=== PATIENT | female | born 1990 | race Caucasian/White ===

== ENCOUNTER 2017-01-15 01:49 | Emergency (ER) | payer BC ==
--- NOTE | ~2017-01-15 | CT4 ---
[facility] A Service of [facility] RADIOLOGY TEXT RESULTS PATIENT: KORIN DUFFY LOCATION: [facility] : [birth year] UNIT #: [id number] AGE: [address]: Lino Mujica MD SEX: F ORDER DR: [id number] [facility] [address] [place], [place] [address] [id number] MR#: [id number] Acc #: [id number] NAME: KORIN DUFFY. : 1990 SEX: F STUDY DATE/TIME: 01/15/2017 0300 UNIT: [facility] ROOM: STUDY DESCRIPTION: CT Abd and Pelv Wo Cont Attending Physician: Lino Mujica M.D. Ordering Physician: Lino Mujica M.D. Primary Care Physician: Francisco Griggs M.D. MEDICAL IMAGING REPORT This report is preliminary unless electronic signature is present EXAM CT abdomen and pelvis, 01/15 at 0300 INDICATION Left flank pain for 2 weeks. Pain worsened today and now rates 10/10. History of kidney stones. TECHNIQUE Axial noncontrast images were obtained through the abdomen and pelvis. Multiplanar reformats were obtained. This CT exam was performed with one or more of the following radiation dose reduction techniques: automatic exposure control, adjustment of mA and/or kV according to patient size, and iterative reconstruction. COMPARISON STUDIES Comparison is made with 02/03/2012. FINDINGS ABDOMEN: The lung bases are clear. The gallbladder is normal. There are multiple small bilateral nonobstructing renal stones. Additionally, there is a 3 mm stone in the distal left ureter just above the UVJ. This is essentially nonobstructing as well. The unenhanced solid organs are otherwise normal. The unopacified GI tract is normal. No free fluid is seen. PELVIS: Urinary bladder is decompressed but is grossly normal. The solid pelvic organs are normal. The appendix is normal, as is the remainder of the unopacified GI tract. IMPRESSION 1. Nonobstructing 3 mm stone in the distal left ureter just above the UVJ. [facility] A Service of [facility] & [facility] RADIOLOGY TEXT RESULTS PATIENT: KORIN DUFFY LOCATION: [facility] : [birth year] UNIT #: [id number] AGE: [address]: Lino Mujica MD SEX: F ORDER DR: 2. Tiny bilateral nonobstructing renal stones. 3. The remainder of the abdomen and pelvis CT, including the appendix, is normal. Dictated by... Jacob Queen Jr., M.D. THIS IS AN ELECTRONICALLY VERIFIED REPORT Jacob Queen Jr., M.D. at 01/15/2017 12:38 PM JUSTIN/nelida TD: 01/15/2017 09:53 JOB #: [id number] MEDICAL IMAGING REPORT Page 1 of 1 COPY
[2017-01-15 02:25] LABS: URINE SOURCE CLEAN CATCH
[2017-01-15 02:36] LABS: BASOPHIL% 0.5 % (0-2.5); EOSINOPHIL# 0.1 X10e3 (0-0.7); HEMATOCRIT 40.6 % (35.0-45.0); HEMOGLOBIN 13.4 gm/dL (12.0-16.0); LYMPHOCYTE# 3.2 X10e3 (1.0-3.5); MEAN CELL VOLUME 83.5 FL (83-96); MEAN CORPUSCULAR HEMOGLOBIN 27.6 PG (28-34); MEAN CORPUSCULAR HGB CONC 33.1 g/dL (30-36); MEAN PLATELET VOLUME 8.3 FL (6.5-11.5); MONOCYTE# 0.7 X10e3 (0-1.0); MONOCYTE% 8.9 % (3.0-12.0); NEUTROPHIL# 4.2 X10e3 (1.5-7.1); NEUTROPHIL% 50.6 % (40-75); PLATELET COUNT 251 X10e3 (140-420); RED BLOOD COUNT 4.87 X10e (3.90-5.30); RED CELL DISTRIBUTION WIDTH 13.2 % (11.0-15.5); WHITE BLOOD COUNT 8.2 X10e3 (4.0-10.5)
[2017-01-15 02:37] LABS: DIFF IND NO
[2017-01-15 02:38] LABS: URINE APPEARANCE CLOUDY; URINE BILIRUBIN NEG (NEG); URINE BLOOD 2+ (NEG); URINE COLOR YELLOW; URINE GLUCOSE NEG (NEG); URINE KETONE NEG (NEG); URINE LEUKOCYTE ESTERASE NEG (NEG); URINE NITRATE NEG (NEG); URINE PH 5.5 (5-8); URINE PROTEIN TRACE (NEG); URINE SPECIFIC GRAVITY 1.024 (1.003-1.035)
[2017-01-15 02:41] LABS: CULTURE INDICATED? YES; URINE BACTERIA AUWI 2+ (NEGATIVE); URINE SQUAMOUS EPITHELIAL CELL OCC /[HPF]
[2017-01-15 02:54] LABS: BUN/CREATININE RATIO 17.5; CALCIUM SERUM 9.3 mg/dL (8.4-10.2); CREATININE SERUM 0.8 mg/dL (0.6-1.4); GLOM FILT RATE Estimated 102.6 mL/min (>60); POTASSIUM 3.3 mmol/L (3.5-5.1)
== END 2017-01-15 04:33 | disposition home or self-care (01) ==
LOC: CED 01:49
PROVIDERS: Emergency Medicine
DX: N20.1 Calculus of ureter (principal)
CPT/HCPCS: 36415; 74176; 80048; 81003; 84703; 85025; 87086; 96361; 96365; 96375; 99284; J0696; J1885; J2405

== ENCOUNTER → 2017-01-25 | Outpatient (CLI) | payer BC ==
--- NOTE | ~2017-01-25 | CR7 ---
[facility] A Service of [facility] RADIOLOGY TEXT RESULTS PATIENT: KORIN DUFFY LOCATION: [facility] : [birth year] UNIT #: [id number] AGE: [address]: Lino Benites MD SEX: F ORDER DR: [id number] [facility] [address] [place], [place] [address] [id number] O MR#: [id number] Acc #: [id number] NAME: KORIN DUFFY : 1990 SEX: F STUDY DATE/TIME: 01/25/2017 16:42 UNIT: [facility] ROOM: STUDY DESCRIPTION: CR Abdomen Single AP View Attending Physician: Lino Benites M.D. Referring Physician: Lino Benites M.D. Ordering Physician: Lino Benites M.D. Primary Care Physician: Francisco Griggs M.D. MEDICAL IMAGING REPORT This report is preliminary unless electronic signature is present EXAM KUB HISTORY Nephrolithiasis. Recent left-sided ureteral stone. TECHNIQUE A single view of the abdomen was obtained and compared with 01/20/2017. FINDINGS A double-J ureteral stent is seen on the left. No calcifications are seen along the course of the stent. The left distal ureteral stone seen on the previous examination is no longer identified. A tiny right-sided lower pole calcification is again seen and unchanged. The bowel gas pattern is remarkable for increased stool throughout the colon. IMPRESSION Double-J stent on the left in satisfactory position. No stone is seen along the course of the left ureter. Dictated by... Jacob Griffin M.D. THIS IS AN ELECTRONICALLY VERIFIED REPORT Jacob Griffin M.D. at 01/26/2017 4:28 PM TEOFILO/chris TD: 01/26/2017 07:52 JOB #: [id number] MEDICAL IMAGING REPORT Page 1 of 1 COPY
== END | disposition home or self-care (01) ==
LOC: CRAD 16:22
DX: N20.1 Calculus of ureter (principal); Z96.0 Presence of urogenital implants
CPT/HCPCS: 74000